=== PATIENT | female | born 1995 | race Caucasian/White ===

== ENCOUNTER 2017-09-29 13:01 | Inpatient (IN) | payer OTHER ==
[2017-09-29 14:53] VITALS: BMI 20.5
--- NOTE | 2017-09-29 15:14 | HP ---
COWS - Scale Resting Pulse: 2= CT 101-120 Sweatin=Flushed/Facial Moisture Restless Observation: 3= Extraneous Movement Pupil Size: 2= Moderately Dilated Bone or Joint Aches: 2= Severe Diffuse Aches Runny Nose/ Eye Tearin= Runny Nose/Eyes GI Upset > 30mins: 3= Vomiting/Diarrhea Tremor Observation: 1= Tremor [place], Not Seen Yawning Observation: 2= >3x During Session Anxiety or Irritability: 2=Irritable/Anxious Goose Flesh Skin: 0=Smooth Skin COWS Score: 21 CIWA Score - CIWA Score Nausea/Vomitin Muscle Tremors: 3 Anxiety: 3 Agitation: 3 Paroxysmal Sweats: 2 Orientation: 0-Oriented Tacttile Disturbances: 1-Very Mild Itch/Numbness Auditory Disturbances: 1-Very Mild Visual Disturbances: 1-Very Mild Sensitivity Headache: 2-Mild CIWA-Ar Total Score: 19 Admission ROS BHS - HPI Chief Complaint: I NEED HELP TO STOP USING HEROIN,XANAX AND CRACK Allergies/Adverse Reactions: Allergies Allergy/AdvReac Type Severity Reaction Status Date / Time No Known Allergies Allergy Verified 09/29/17 14:58 History of Present Illness: THIS 22 YEARS OLD FEMALE WITH HEROIN,XANAX,CRACK,SEEKING DETOX,WITHDRAWAL SYMPTOM,LAST DETOX ARMS AND ACRES IN 08/21 DENIED MEDICAL PROBLEM SURGERY FOR FRACTURES OF MANDIBLE AND LEFT WRIST IN 2013 NICOTINE DEPENDENCE LONGEST PERIOD OF SOBRIETY 1 AND HALF YEAR PTSD,BORDERLINED PERSONALITY WEIGHT LOSS - Ebola screening Have you traveled outside of the country in the last 21 days: No Have you had contact with anyone from an Ebola affected area: No Have you been sick,other than usual withdrawal symptoms: No - Review of Systems Constitutional: Loss of Appetite, Night Sweats, Changes in sleep, Weakness, Unintentional Wgt. Loss EENT: reports: Tearing, Nose Congestion, Other (SURGERY FOR FX OF MANDIBLES) Respiratory: reports: No Symptoms reported Cardiac: reports: Palpitations GI: reports: Diarrhea, Nausea, Vomiting, Abdominal cramping : reports: No Symptoms Reported Musculoskeletal: reports: Back Pain, Joint Pain, Muscle Pain, Neck Pain Integumentary: reports: Dryness Neuro: reports: Headache, Tremors Endocrine: reports: No Symptoms Reported Hematology: reports: No Symptoms Reported Psychiatric: reports: No Sypmtoms Reported (PTSD), Judgement Intact, Mood/ Affect Appropiate, Anxious, Depressed Patient History - Patient Medical History Hx Anemia: No Hx Asthma: No Hx Chronic Obstructive Pulmonary Disease (COPD): No Hx Cancer: No Hx Cardiac Disorders: No Hx Congestive Heart Failure: No Hx Hypertension: No Hx Hypercholesterolemia: No Hx Pacemaker: No HX Cerebrovascular Accident: No Hx Seizures: No Hx Dementia: No Hx Diabetes: No Hx Gastrointestinal Disorders: No Hx Liver Disease: No Hx Genitourinary Disorders: No Hx Sexually Transmitted Disorders: No Hx Renal Disease (ESRD): No Hx Thyroid Disease: No Hx Human Immunodeficiency Virus (HIV): No (LAST 07/31 NEGATIVE) Hx Hepatitis C: No Hx Depression: Yes (ANXIETY,PTSD) Hx Suicide Attempt: Yes (JUMP FROM THE [place]) Hx Bipolar Disorder: No Hx Schizophrenia: No Other Medical History: ANXIETY,DEPRESSION - Patient Surgical History Past Surgical History: Yes Other Surgical History: SURGERY FOR FX OF MANDIBLES AND LEFT WRIST IN 2013 - PPD History Previous Implant?: Yes Documented Results: Negative w/o proof Implanted On Prior R Admission?: No PPD to be Administered?: Yes - Reproductive History Patient is a Female of Child Bearing Age (11 -55 yrs old): Yes Patient : No - Smoking Cessation Smoking history: Current every day smoker Have you smoked in the past 12 months: Yes Aproximately how many cigarettes per day: 10 Hx Chewing Tobacco Use: No Initiated information on smoking cessation: Yes 'Breaking Loose' booklet given: 09/29/17 - Substance & Tx. History Hx Alcohol Use: No Hx Substance Use: Yes Substance Use Type: Cocaine, Heroin, Tranquilizers Hx Substance Use Treatment: Yes ([facility] IN 08/31) - Substances Abused Heroin Route: Injection Frequency: Daily Amount used: 10 BAGS Age of first use: 18 Date of Last Use: 09/29/17 Crack Route: Smoking Frequency: Daily Amount used: $40-120 Age of first use: 21 Date of Last Use: 09/29/17 Alprazolam (Xanax) Route: Oral Frequency: Daily Amount used: 2MG-8MG Age of first use: 14 Date of Last Use: 09/28/17 Family Disease History - Family Disease History Family History: Denies Admission Physical Exam BHS - Vital Signs Vital Signs: Vital Signs - 24 hr 09/29/17 14:49 Temperature 98.4 F Pulse Rate 115 H Respiratory 18 Rate Blood Pressure 138/106 - Physical General Appearance: Yes: Moderate Distress, Tremorous, Irritable, Sweating, Anxious HEENTM: Yes: Normal ENT Inspection, IVORY, Pharynx Normal Respiratory: Yes: Lungs Clear, Normal Breath Sounds, No Respiratory Distress Neck: Yes: Within Normal Limits, Supple, Trachea in good position Breast: Yes: Breast Exam Deferred Cardiology: Yes: Tachycardia Abdominal: Yes: Within Normal Limits, Normal Bowel Sounds, Non Tender, Soft Genitourinary: Yes: Within Normal Limits Back: Yes: Muscle Spasm Extremities: Yes: Within Normal Limits, Normal Inspection, Normal Range of Motion, Tremors Neurological: Yes: manufacturing executive II-XII NML intact, Fully Oriented, Alert, Motor Strength 5/5 Integumentary: Yes: Dry, Track [place] Lymphatic: Yes: Within Normal Limits - Diagnostic (1) Opioid dependence with withdrawal Current Visit: Yes Status: Acute (2) Cocaine dependence Current Visit: Yes Status: Acute (3) Uncomplicated sedative, hypnotic or anxiolytic withdrawal Current Visit: Yes Status: Acute (4) Weight loss Current Visit: Yes Status: Acute (5) Nicotine dependence Current Visit: Yes Status: Acute (6) PTSD (post-traumatic stress disorder) Current Visit: Yes Status: Acute (7) Borderline personality disorder Current Visit: Yes Status: Acute Cleared for Admission [facility] - Detox or Rehab [facility] Level of Care: Medically Managed Detox Regimen/Protocol: Methadone [facility] Breath Alcohol Content Breath Alcohol Content: 0 Urine Pregancy Test - Result Urine Test Results: Negative- NO Line Present Urine Drug Screen - Results Drug Screen Negative: No Urine Drug Screen Results: CHRISTAL-Cocaine, OPI-Opiates
[2017-09-29] MEDS ORDERED: LOPERAMIDE HCL 2 MG CAPSULE PO PRN (15:27)
[2017-09-29] MEDS ORDERED: MAG HYDROX/AL HYDROX/SIMETH 30 ML UNIT-DOSE CUP PO PRN (15:27)
[2017-09-29] MEDS ORDERED: MAGNESIUM HYDROX 2400MG/30ML ORAL SUSPENSION 30 ML CUP PO PRN (15:27)
[2017-09-29] MEDS ORDERED: IBUPROFEN 400 MG TABLET (FP) PO PRN (15:27)
[2017-09-29] MEDS ORDERED: P-EPHED 60MG/TRIPROLIDI 2.5MG TABLET PO PRN (15:27)
[2017-09-29] MEDS ORDERED: ACETAMINOPHEN 325 MG TABLET (FP) PO PRN (15:27)
[2017-09-29] MEDS ORDERED: guaiFENesin/D-METHORPHAN HB 10 ML UNIT-DOSE CUPS PO PRN (15:27)
[2017-09-29] MEDS ORDERED: MAGNESIUM CITRATE 300 ML BOTTLE PO PRN (15:27)
[2017-09-29] MEDS ORDERED: MENTHOL/PHENOL 1 EACH UD MM PRN (15:27)
[2017-09-29] MEDS ORDERED: METHADONE HCL 10 MG TABLET (FOR DETOX USE ONLY) PO ONE ×2 (16:00→23:00)
[2017-09-29 17:50] LABS: URINE APPEARANCE CLOUDY; URINE BILIRUBIN NEGATIVE (NEGATIVE); URINE BLOOD NEGATIVE (NEGATIVE); URINE COLOR YELLOW; URINE GLUCOSE (UA) NEGATIVE (NEGATIVE); URINE KETONE NEGATIVE (NEGATIVE); URINE LEUK ESTERASE TRACE (NEGATIVE); URINE NITRITE POSITIVE (NEGATIVE); URINE PROTEIN NEGATIVE (NEGATIVE); URINE UROBILINOGEN NEGATIVE mg/dL (0.2-1.0)
[2017-09-29 18:22] LABS: EPI CELLS FEW /HPF (FEW); URINE BACTERIA MANY /hpf (NONE SEEN); URINE MUCUS RARE
[2017-09-29] MEDS ORDERED: METHADONE HCL 10 MG TABLET (FOR DETOX USE ONLY) ONE (18:32)
[2017-09-29] MEDS: diazePAM 5 MG TABLET PO PRN (18:52)
[2017-09-29] MEDS: CYCLOBENZAPRINE HCL 10 MG TABLET (FP) PO PRN ×2 (18:53→22:12)
[2017-09-29] MEDS: NICOTINE 21 MG/24 HOURS TOPICAL PATCH TD SCH (18:57)
[2017-09-29] MEDS: THIAMINE HCL 100 MG TABLET (FP) PO SCH (22:12)
[2017-09-29] MEDS: cloNIDine HCL 0.1 MG TABLET PO SCH (22:12)
[2017-09-30] MEDS: diazePAM 5 MG TABLET PO PRN ×4 (05:38→18:29)
--- NOTE | 2017-09-30 08:59 | PN ---
[facility] CIWA - CIWA Score Nausea/Vomitin Muscle Tremors: 3 Anxiety: 3 Agitation: 3 Paroxysmal Sweats: 1-Minimal Palms Moist Orientation: 0-Oriented Tacttile Disturbances: 1-Very Mild Itch/Numbness Auditory Disturbances: 1-Very Mild Visual Disturbances: 0-None Headache: 2-Mild CIWA-Ar Total Score: 17 BHS COWS - Scale Resting Pulse: 1= MD 81-100 Sweatin= Chills/Flushing Restless Observation: 3= Extraneous Movement Pupil Size: 1= Pupils >than Normal Bone or Joint Aches: 2= Severe Diffuse Aches Runny Nose/ Eye Tearin= Runny Nose/Eyes GI Upset > 30mins: 2= Nausea/Diarrhea Tremor Observation of Outstretched Hands: 2= Slight Tremor Visible Yawning Observation: 1= 1-2x During Session Anxiety or Irritability: 2=Irritable/Anxious Goose Flesh Skin: 0=Smooth Skin COWS Score: 17 [facility] Progress Note (SOAP) Subjective: ALERT,IRRITABLE,ANXIOUS,INTERRUPTED SLEEP,TREMOR,PAIN IN THE BODY AND BACK Objective: 09/30/17 08:57 Vital Signs Temperature 99.5 F 09/30/17 06:00 Pulse Rate 97 H 09/30/17 06:00 Respiratory Rate 18 09/30/17 06:30 Blood Pressure 104/63 09/30/17 06:00 O2 Sat by Pulse Oximetry (%) 09/30/17 08:57 EKG NSR,NORMAL ECG 09/30/17 08:58 Laboratory Last Values Urine Color Yellow 09/29/17 15:30 Urine Appearance Cloudy 09/29/17 15:30 Urine pH 6.0 (5.0-8.0) 09/29/17 15:30 Ur Specific [place] 1.014 (1.001-1.035) 09/29/17 15:30 Urine Protein Negative (NEGATIVE) 09/29/17 15:30 Urine Glucose (UA) Negative (NEGATIVE) 09/29/17 15:30 Urine Ketones Negative (NEGATIVE) 09/29/17 15:30 Urine Blood Negative (NEGATIVE) 09/29/17 15:30 Urine Nitrite Positive (NEGATIVE) 09/29/17 15:30 Urine Bilirubin Negative (NEGATIVE) 09/29/17 15:30 Urine Urobilinogen Negative mg/dL (0.2-1.0) 09/29/17 15:30 Ur Leukocyte Esterase Trace (NEGATIVE) 09/29/17 15:30 Urine WBC (Auto) 5 /hpf (3-5) 09/29/17 15:30 Urine RBC (Auto) 3 /hpf (0-3) 09/29/17 15:30 Ur Epithelial Cells Few /HPF (FEW) 09/29/17 15:30 Urine Bacteria Many /hpf (NONE SEEN) 09/29/17 15:30 Urine Mucus Rare 09/29/17 15:30 LABS PENDING Assessment: 09/30/17 08:58 WITHDRAWAL SYMPTOM Plan: CONTINUE DETOX
[2017-09-30] MEDS ORDERED: METHADONE HCL 10 MG TABLET (FOR DETOX USE ONLY) PO ONE (10:00)
[2017-09-30 10:12] LABS: HEMATOCRIT 38.5 % (32.4-45.2); HEMOGLOBIN 13.1 GM/dL (10.7-15.3); MCH 30.7 pg (25.7-33.7); MEAN CELL VOLUME 90.2 fl (80-96); MEAN PLT VOLUME 8.3 fl (7.5-11.1); PLATELET COUNT 335 K/MM3 (134-434); RBC 4.27 M/mm3 (3.60-5.2); RDW 13.2 % (11.6-15.6); WHITE BLOOD COUNT 5.8 K/mm3 (4.0-10.0)
[2017-09-30] MEDS: PRENATAL VITAMINS W/ FOLIC ACID TABLET (FP) PO SCH (10:23)
[2017-09-30] MEDS: cloNIDine HCL 0.1 MG TABLET PO SCH ×2 (10:23→22:19)
[2017-09-30] MEDS: NICOTINE 21 MG/24 HOURS TOPICAL PATCH TD SCH (10:24)
[2017-09-30 10:26] LABS: CHLORIDE 105 mmol/L (98-107); POTASSIUM 4.6 mmol/L (3.5-5.1); SODIUM 140 mmol/L (136-145)
[2017-09-30 10:42] LABS: ALBUMIN 3.6 g/dl (3.4-5.0); ALK PHOS 97 U/L (45-117); ANION GAP 4 (8-16); BILIRUBIN,TOTAL 0.3 mg/dL (0.2-1.0); BLOOD UREA NITROGEN 16 mg/dL (7-18); CALCIUM 8.6 mg/dL (8.5-10.1); CO2 31 mmol/L (21-32); CREATININE 0.7 mg/dL (0.55-1.02); GLUCOSE,RANDOM 66 mg/dL (74-106); SGOT/AST 8 U/L (15-37); SGPT/ALT 16 U/L (12-78); TOT PROT 6.6 g/dl (6.4-8.2)
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
[2017-09-30] MEDS: ZIPRASIDONE 40 MG CAPSULE (FP) PO SCH (22:19)
[2017-09-30] MEDS: THIAMINE HCL 100 MG TABLET (FP) PO SCH (22:19)
[2017-09-30] MEDS: GABAPENTIN 400 MG CAPSULE (FP) PO SCH (22:19)
--- NOTE | 2017-10-01 00:55 | EKG ---
Test Reason : Blood Pressure : / mmHG Vent. Rate : 091 BPM Atrial Rate : 091 BPM P-R Int : 148 ms QRS Dur : 086 ms QT Int : 382 ms P-R-T Axes : 071 054 049 degrees QTc Int : 469 ms NORMAL SINUS RHYTHM NORMAL ECG NO PREVIOUS ECGS AVAILABLE Confirmed by HOLLY HOLLOWAY, DINESH ([id number]) on 10/01/2017 12:55:09 AM Referred By: Confirmed By:DINESH BARRERA MD
[2017-10-01] MEDS: GABAPENTIN 400 MG CAPSULE (FP) PO SCH ×3 (05:34→21:36)
[2017-10-01] MEDS: diazePAM 5 MG TABLET PO PRN ×4 (05:34→21:36)
--- NOTE | 2017-10-01 09:25 | PN ---
[facility] CIWA - CIWA Score Nausea/Vomitin Muscle Tremors: 3 Anxiety: 3 Agitation: 3 Paroxysmal Sweats: 1-Minimal Palms Moist Orientation: 0-Oriented Tacttile Disturbances: 1-Very Mild Itch/Numbness Auditory Disturbances: 1-Very Mild Visual Disturbances: 0-None Headache: 2-Mild CIWA-Ar Total Score: 17 BHS COWS - Scale Resting Pulse: 2= NM 101-120 Sweatin= Chills/Flushing Restless Observation: 3= Extraneous Movement Pupil Size: 1= Pupils >than Normal Bone or Joint Aches: 2= Severe Diffuse Aches Runny Nose/ Eye Tearin= Runny Nose/Eyes GI Upset > 30mins: 2= Nausea/Diarrhea Tremor Observation of Outstretched Hands: 2= Slight Tremor Visible Yawning Observation: 1= 1-2x During Session Anxiety or Irritability: 2=Irritable/Anxious Goose Flesh Skin: 0=Smooth Skin COWS Score: 18 [facility] Progress Note (SOAP) Subjective: ALERT,IRRITABLE,ANXIOUS,TREMOR,INTERRUPTED SLEEP,TREMOR,PAIN IN THE BODY AND BACK Objective: 10/01/17 09:23 Vital Signs Temperature 98.2 F 10/01/17 06:00 Pulse Rate 105 H 10/01/17 06:00 Respiratory Rate 16 10/01/17 06:00 Blood Pressure 100/69 10/01/17 06:00 O2 Sat by Pulse Oximetry (%) Laboratory Last Values WBC 5.8 K/mm3 (4.0-10.0) 09/30/17 07:00 RBC 4.27 M/mm3 (3.60-5.2) 09/30/17 07:00 Hgb 13.1 GM/dL (10.7-15.3) 09/30/17 07:00 Hct 38.5 % (32.4-45.2) 09/30/17 07:00 MCV 90.2 fl (80-96) 09/30/17 07:00 MCH 30.7 pg (25.7-33.7) 09/30/17 07:00 MCHC 34.0 g/dl (32.0-36.0) 09/30/17 07:00 RDW 13.2 % (11.6-15.6) 09/30/17 07:00 Plt Count 335 K/MM3 (134-434) 09/30/17 07:00 MPV 8.3 fl (7.5-11.1) 09/30/17 07:00 Sodium 140 mmol/L (136-145) 09/30/17 07:00 Potassium 4.6 mmol/L (3.5-5.1) 09/30/17 07:00 Chloride 105 mmol/L (98-107) 09/30/17 07:00 Carbon Dioxide 31 mmol/L (21-32) 09/30/17 07:00 Anion Gap 4 (8-16) L 09/30/17 07:00 BUN 16 mg/dL (7-18) 09/30/17 07:00 Creatinine 0.7 mg/dL (0.55-1.02) 09/30/17 07:00 Creat Clearance w eGFR > 60 (>60) 09/30/17 07:00 Random Glucose 66 mg/dL (74-106) L 09/30/17 07:00 Calcium 8.6 mg/dL (8.5-10.1) 09/30/17 07:00 Total Bilirubin 0.3 mg/dL (0.2-1.0) 09/30/17 07:00 AST 8 U/L (15-37) L 09/30/17 07:00 ALT 16 U/L (12-78) 09/30/17 07:00 Alkaline Phosphatase 97 U/L (45-117) 09/30/17 07:00 Total Protein 6.6 g/dl (6.4-8.2) 09/30/17 07:00 Albumin 3.6 g/dl (3.4-5.0) 09/30/17 07:00 Urine Color Yellow 09/29/17 15:30 Urine Appearance Cloudy 09/29/17 15:30 Urine pH 6.0 (5.0-8.0) 09/29/17 15:30 Ur Specific [place] 1.014 (1.001-1.035) 09/29/17 15:30 Urine Protein Negative (NEGATIVE) 09/29/17 15:30 Urine Glucose (UA) Negative (NEGATIVE) 09/29/17 15:30 Urine Ketones Negative (NEGATIVE) 09/29/17 15:30 Urine Blood Negative (NEGATIVE) 09/29/17 15:30 Urine Nitrite Positive (NEGATIVE) 09/29/17 15:30 Urine Bilirubin Negative (NEGATIVE) 09/29/17 15:30 Urine Urobilinogen Negative mg/dL (0.2-1.0) 09/29/17 15:30 Ur Leukocyte Esterase Trace (NEGATIVE) 09/29/17 15:30 Urine WBC (Auto) 5 /hpf (3-5) 09/29/17 15:30 Urine RBC (Auto) 3 /hpf (0-3) 09/29/17 15:30 Ur Epithelial Cells Few /HPF (FEW) 09/29/17 15:30 Urine Bacteria Many /hpf (NONE SEEN) 09/29/17 15:30 Urine Mucus Rare 09/29/17 15:30 RPR Titer Nonreactive (NONREACTIVE) 09/30/17 07:00 Hep C Ab Diagnostic <0.1 s/co ratio (0.0-0.9) 09/30/17 07:00 HIV 1&2 Antibody Screen Negative 09/30/17 07:00 HIV P24 Antigen Negative 09/30/17 07:00 Assessment: 10/01/17 09:24 WITHDRAWAL SYMPTOM Plan: CONTINUE DETOX
[2017-10-01] MEDS ORDERED: METHADONE HCL 5 MG TABLET (FOR DETOX USE ONLY) PO ONE (10:00)
[2017-10-01] MEDS: NICOTINE 21 MG/24 HOURS TOPICAL PATCH TD SCH (10:49)
[2017-10-01] MEDS: PRENATAL VITAMINS W/ FOLIC ACID TABLET (FP) PO SCH (10:49)
[2017-10-01] MEDS: cloNIDine HCL 0.1 MG TABLET PO SCH ×2 (10:49→21:36)
[2017-10-01] MEDS: CYCLOBENZAPRINE HCL 10 MG TABLET (FP) PO PRN (14:56)
[2017-10-01] MEDS: ZIPRASIDONE 40 MG CAPSULE (FP) PO SCH (21:36)
[2017-10-01] MEDS: THIAMINE HCL 100 MG TABLET (FP) PO SCH (21:36)
[2017-10-02] MEDS: diazePAM 5 MG TABLET PO PRN ×3 (05:25→14:26)
[2017-10-02] MEDS: GABAPENTIN 400 MG CAPSULE (FP) PO SCH ×3 (05:25→23:02)
[2017-10-02] MEDS ORDERED: METHADONE HCL 5 MG TABLET (FOR DETOX USE ONLY) PO ONE (10:00)
[2017-10-02] MEDS: NICOTINE 21 MG/24 HOURS TOPICAL PATCH TD SCH (10:22)
[2017-10-02] MEDS: PRENATAL VITAMINS W/ FOLIC ACID TABLET (FP) PO SCH (10:22)
[2017-10-02] MEDS: cloNIDine HCL 0.1 MG TABLET PO SCH ×2 (10:22→23:02)
--- NOTE | 2017-10-02 10:24 | PN ---
S Progress Note (SOAP) Subjective: ALERT,IRRITABLE,ANXIOUS,INTERRUPTED SLEEP,TREMOR,PAIN IN THE BODY AND BACK Objective: 10/02/17 10:22 Vital Signs Temperature 97.7 F 10/02/17 10:00 Pulse Rate 113 H 10/02/17 10:00 Respiratory Rate 18 10/02/17 10:00 Blood Pressure 107/66 10/02/17 10:00 O2 Sat by Pulse Oximetry (%) Laboratory Last Values WBC 5.8 K/mm3 (4.0-10.0) 09/30/17 07:00 RBC 4.27 M/mm3 (3.60-5.2) 09/30/17 07:00 Hgb 13.1 GM/dL (10.7-15.3) 09/30/17 07:00 Hct 38.5 % (32.4-45.2) 09/30/17 07:00 MCV 90.2 fl (80-96) 09/30/17 07:00 MCH 30.7 pg (25.7-33.7) 09/30/17 07:00 MCHC 34.0 g/dl (32.0-36.0) 09/30/17 07:00 RDW 13.2 % (11.6-15.6) 09/30/17 07:00 Plt Count 335 K/MM3 (134-434) 09/30/17 07:00 MPV 8.3 fl (7.5-11.1) 09/30/17 07:00 Sodium 140 mmol/L (136-145) 09/30/17 07:00 Potassium 4.6 mmol/L (3.5-5.1) 09/30/17 07:00 Chloride 105 mmol/L (98-107) 09/30/17 07:00 Carbon Dioxide 31 mmol/L (21-32) 09/30/17 07:00 Anion Gap 4 (8-16) L 09/30/17 07:00 BUN 16 mg/dL (7-18) 09/30/17 07:00 Creatinine 0.7 mg/dL (0.55-1.02) 09/30/17 07:00 Creat Clearance w eGFR > 60 (>60) 09/30/17 07:00 Random Glucose 66 mg/dL (74-106) L 09/30/17 07:00 Calcium 8.6 mg/dL (8.5-10.1) 09/30/17 07:00 Total Bilirubin 0.3 mg/dL (0.2-1.0) 09/30/17 07:00 AST 8 U/L (15-37) L 09/30/17 07:00 ALT 16 U/L (12-78) 09/30/17 07:00 Alkaline Phosphatase 97 U/L (45-117) 09/30/17 07:00 Total Protein 6.6 g/dl (6.4-8.2) 09/30/17 07:00 Albumin 3.6 g/dl (3.4-5.0) 09/30/17 07:00 Urine Color Yellow 09/29/17 15:30 Urine Appearance Cloudy 09/29/17 15:30 Urine pH 6.0 (5.0-8.0) 09/29/17 15:30 Ur Specific [place] 1.014 (1.001-1.035) 09/29/17 15:30 Urine Protein Negative (NEGATIVE) 09/29/17 15:30 Urine Glucose (UA) Negative (NEGATIVE) 09/29/17 15:30 Urine Ketones Negative (NEGATIVE) 09/29/17 15:30 Urine Blood Negative (NEGATIVE) 09/29/17 15:30 Urine Nitrite Positive (NEGATIVE) 09/29/17 15:30 Urine Bilirubin Negative (NEGATIVE) 09/29/17 15:30 Urine Urobilinogen Negative mg/dL (0.2-1.0) 09/29/17 15:30 Ur Leukocyte Esterase Trace (NEGATIVE) 09/29/17 15:30 Urine WBC (Auto) 5 /hpf (3-5) 09/29/17 15:30 Urine RBC (Auto) 3 /hpf (0-3) 09/29/17 15:30 Ur Epithelial Cells Few /HPF (FEW) 09/29/17 15:30 Urine Bacteria Many /hpf (NONE SEEN) 09/29/17 15:30 Urine Mucus Rare 09/29/17 15:30 RPR Titer Nonreactive (NONREACTIVE) 09/30/17 07:00 Hep C Ab Diagnostic <0.1 s/co ratio (0.0-0.9) 09/30/17 07:00 HIV 1&2 Antibody Screen Negative 09/30/17 07:00 HIV P24 Antigen Negative 09/30/17 07:00 Assessment: 10/02/17 10:23 WITHDRAWAL SYMPTOM Plan: CONTINUE DETOX
[2017-10-02] MEDS: CYCLOBENZAPRINE HCL 10 MG TABLET (FP) PO PRN (14:26)
[2017-10-02] MEDS: hydrOXYzine PAMOATE 25 MG CAPSULE (FP) PO PRN ×2 (17:58→23:03)
[2017-10-02] MEDS: THIAMINE HCL 100 MG TABLET (FP) PO SCH (23:02)
[2017-10-02] MEDS: ZIPRASIDONE 40 MG CAPSULE (FP) PO SCH (23:02)
[2017-10-03] MEDS: GABAPENTIN 400 MG CAPSULE (FP) PO SCH ×3 (05:48→22:08)
[2017-10-03] MEDS: CYCLOBENZAPRINE HCL 10 MG TABLET (FP) PO PRN ×3 (05:49→22:08)
[2017-10-03] MEDS: hydrOXYzine PAMOATE 25 MG CAPSULE (FP) PO PRN ×3 (05:49→20:46)
[2017-10-03] MEDS ORDERED: METHADONE HCL 10 MG TABLET (FOR DETOX USE ONLY) PO ONE (10:00)
--- NOTE | 2017-10-03 10:28 | PN ---
S Progress Note (SOAP) Subjective: ALERT,IRRITABLE,ANXIOUS,INTERRUPTED SLEEP Objective: 10/03/17 10:28 Vital Signs Temperature 98.1 F 10/03/17 09:25 Pulse Rate 134 H 10/03/17 09:25 Respiratory Rate 20 10/03/17 09:25 Blood Pressure 120/68 10/03/17 09:25 O2 Sat by Pulse Oximetry (%) Assessment: 10/03/17 10:28 WITHDRAWAL SYMPTOM Plan: CONTINUE DETOX,DISCHARGE IN AM
[2017-10-03] MEDS: PRENATAL VITAMINS W/ FOLIC ACID TABLET (FP) PO SCH (10:29)
[2017-10-03] MEDS: NICOTINE 21 MG/24 HOURS TOPICAL PATCH TD SCH (10:29)
[2017-10-03] MEDS: cloNIDine HCL 0.1 MG TABLET PO SCH ×2 (10:29→22:08)
--- NOTE | 2017-10-03 12:13 | PN ---
Psychiatric Progress Note Vital Signs: Vital Signs Period Temp Pulse Resp BP Sys/Perdomo Pulse Ox Last 24 Hr 98.1 F-98.8 F 97-134 16-20 96-137/55-75 Date of Session: 10/03/17 Chief Complaint:: " I need a medication for my anxiety." ROS: Unremarkable. Current Medications: Active Medications Generic Name Dose Route Start Last Admin Trade Name Freq PRN Reason Stop Dose Admin Acetaminophen 650 mg 09/29/17 15:27 Tylenol - PO Q4H PRN FEVER Al Hydroxide/Mg Hydroxide 30 ml 09/29/17 15:27 Mylanta Oral Suspension - PO Q6H PRN DYSPEPSIA Clonidine 0.1 mg 09/29/17 22:00 10/03/17 10:29 Catapres - PO 0.1 mg BID SONU Administration Cyclobenzaprine HCl 10 mg 09/29/17 15:32 10/03/17 05:49 Flexeril - PO 10 mg TID PRN Administration MUSCLE SPASMS Eucalyptus/Menthol/Phenol/Sorbitol 1 each 09/29/17 15:27 Cepastat Lozenge - MM Q4H PRN SORE THROAT Gabapentin 400 mg 09/30/17 22:00 10/03/17 05:48 Neurontin - PO 400 mg TID SONU Administration Guaifenesin 10 ml 09/29/17 15:27 Robitussin Dm - PO Q6H PRN COUGH Hydroxyzine Pamoate 25 mg 09/29/17 15:27 10/03/17 05:49 Vistaril - PO 25 mg Q4H PRN Administration AGITATION Ibuprofen 400 mg 09/29/17 15:27 Motrin - PO Q6H PRN PAIN LEVEL 4-6 Loperamide HCl 4 mg 09/29/17 15:27 Imodium - PO Q6H PRN DIARRHEA Magnesium Citrate 300 ml 09/29/17 15:27 Citroma - PO Q48H PRN CONSTIPATION Magnesium Hydroxide 30 ml 09/29/17 15:27 Milk Of Magnesia - PO DAILY PRN CONSTIPATION Methadone HCl 5 mg 10/04/17 06:00 Dolophine - PO 10/04/17 06:01 ONCE@0600 ONE Nicotine 21 mg 09/29/17 16:00 10/03/17 10:29 Nicoderm Patch - TD 21 mg DAILY SONU Administration Multivit/Folic Acid/Iron 1 tab 09/30/17 10:00 10/03/17 10:29 Vitamins (Sjr) - PO 1 tab DAILY SONU Administration Pseudoephedrine/Triprolidine 1 combo 09/29/17 15:27 Actifed - PO TID PRN NASAL CONGESTION Thiamine HCl 100 mg 09/29/17 22:00 10/02/17 23:02 Vitamin B1 - PO 100 mg HS SONU Administration Ziprasidone 40 mg 09/30/17 22:00 10/02/17 23:02 Geodon - PO 40 mg HS SONU Administration Medication(s) Change(s): Yes. Will add buspar 10mg BID Current Side Effect: No Lab tests ordered: No Lab tests reviewed: Yes Provider note:: Plastic Maker met with patient concerning psychiatric reconsultation. Pt. c/o anxiety. States the vistaril 50mg is not effective. Pt. with a h/o accepting buspar 5mg TID in November of 2016. Pt. agreeable with restarting buspar for anxiety. Pt. encouraged to utilize her coping skills when her anxiety increases and to follow up with her psychiatrist after discharge from rehab. Benefits and side effects discussed. Verbal consent given. Will order Buspar 10mg BID. Total face to face time:: 25 Mental Status Exam - Mental Status Exam Alert and Oriented to: Time, Place, Person Cognitive Function: Good Patient Appearance: Well Groomed Mood: Anxious Affect: Appropriate Patient Behavior: Appropriate, Cooperative Speech Pattern: Clear, Appropriate Voice Loudness: Normal Thought Disorder: Not Present Hallucinations: Denies Suicidal Ideation: Denies Homicidal Ideation: Denies Insight/Judgement: Poor Sleep: Fair Appetite: Fair Muscle strength/Tone: Normal Gait/Station: Normal Psychiatric Treatment Plan - Problem List (1) Borderline personality disorder Current Visit: Yes Comment: self reports. (2) Cocaine dependence Current Visit: Yes (3) Opioid dependence with withdrawal Current Visit: Yes (4) PTSD (post-traumatic stress disorder) Current Visit: Yes Comment: self reports. (5) Substance induced mood disorder Current Visit: Yes
[2017-10-03] MEDS: busPIRone HCL 10 MG TABLET (FP) PO SCH ×2 (12:32→22:08)
[2017-10-03] MEDS: THIAMINE HCL 100 MG TABLET (FP) PO SCH (22:08)
[2017-10-03] MEDS: ZIPRASIDONE 40 MG CAPSULE (FP) PO SCH (22:08)
[2017-10-04] MEDS: GABAPENTIN 400 MG CAPSULE (FP) PO SCH (05:10)
[2017-10-04] MEDS: hydrOXYzine PAMOATE 25 MG CAPSULE (FP) PO PRN (05:11)
[2017-10-04] MEDS: CYCLOBENZAPRINE HCL 10 MG TABLET (FP) PO PRN (05:11)
[2017-10-04] MEDS ORDERED: METHADONE HCL 5 MG TABLET (FOR DETOX USE ONLY) PO ONE (06:00)
[2017-10-04 06:19] VITALS: TEMP 97.9
[2017-10-04 09:32] VITALS: BP 108/71; PULSE 108
--- NOTE | 2017-10-04 12:21 | PN ---
S Progress Note (SOAP) Subjective: No new complaints verbalized feeling okay Objective: 10/04/17 12:20 A & O x 3 No acute distress ambulatory steadily Vital Signs Temperature 97.9 F 10/04/17 09:31 Pulse Rate 108 H 10/04/17 09:31 Respiratory Rate 16 10/04/17 09:31 Blood Pressure 108/71 10/04/17 09:31 O2 Sat by Pulse Oximetry (%) Assessment: 10/04/17 12:21 detox successfully completed Plan: for discharge
--- NOTE | 2017-10-04 12:28 | DS ---
[facility] Detox Discharge Summary Admission Date: 09/29/17 Discharge Date: 10/04/17 - History Additional Comments: Pt for d/c plans for [facility] rehab program being picked up by mother - Physical Exam Results Vital Signs: Vital Signs Temperature 97.9 F 10/04/17 09:31 Pulse Rate 108 H 10/04/17 09:31 Respiratory Rate 16 10/04/17 09:31 Blood Pressure 108/71 10/04/17 09:31 O2 Sat by Pulse Oximetry (%) Pertinent Admission Physical Exam Findings: withdrawal sx - Treatment Hospital Course: Detox Protocol Followed, Detoxed Safely, Responded well, Discharged Condition Good Patient has Accepted a Rehab Referral to: [facility] - Medication Discharge Medications: Ambulatory Orders Buspirone HCl [Buspar -] 10 mg PO BID #60 tablet 10/03/17 Gabapentin [Neurontin -] 400 mg PO TID #30 capsule 10/03/17 Ziprasidone [Geodon -] 40 mg PO HS #30 capsule 10/03/17 - Diagnosis (1) Opioid dependence with withdrawal Status: Acute (2) Uncomplicated sedative, hypnotic or anxiolytic withdrawal Status: Acute (3) Nicotine dependence Status: Acute (4) Cocaine dependence Status: Acute (5) Substance induced mood disorder Status: Acute (6) Weight loss Status: Acute (7) Borderline personality disorder Status: Chronic (8) PTSD (post-traumatic stress disorder) Status: Chronic - AMA Did Patient Leave Against Medical Advice: No
== END 2017-10-04 08:55 | disposition home or self-care (01) | DRG 773 ==
LOC: YASAS 13:01 → Y6N 15:16
PROVIDERS: ADMIT Internal Medicine; ATTEND Internal Medicine
PROC: HZ2ZZZZ Detoxification Services for Substance Abuse Treatment (ICD-10-PCS; principal; 2017-09-29)
DX: F11.23 Opioid dependence with withdrawal (principal); F13.230 Sedative, hypnotic or anxiolytic dependence with withdrawal, uncomplicated; F14.20 Cocaine dependence, uncomplicated; F19.24 Other psychoactive substance dependence with psychoactive substance-induced mood disorder; F41.8 Other specified anxiety disorders; F43.10 Post-traumatic stress disorder, unspecified; F69 Unspecified disorder of adult personality and behavior; R63.4 Abnormal weight loss; Z68.20 Body mass index [BMI] 20.0-20.9, adult; Z91.5 Personal history of self-harm
CPT/HCPCS: 36415; 80053; 81003; 81015; 85027; 86593; 87389; 93005; 93010; J0735

== ENCOUNTER 2022-07-26 19:08 | Inpatient (IN) | payer OTHER ==
[2022-07-26 20:03] VITALS: BMI 30.5
[2022-07-27] MEDS ORDERED: MAG HYDROX/AL HYDROX/SIMETH 30 ML UNIT-DOSE CUP PO PRN (03:10)
[2022-07-27] MEDS ORDERED: DICYCLOMINE HCL 10 MG CAPSULE PO PRN (03:10)
[2022-07-27] MEDS ORDERED: NALOXONE HCL (KLOXXADO) 8 MG SPRAY NS PRN (03:10)
[2022-07-27] MEDS ORDERED: ACETAMINOPHEN 325 MG TABLET (FP) PO PRN ×2 (03:10)
[2022-07-27] MEDS ORDERED: IBUPROFEN 400 MG TABLET (FP) PO PRN (03:10)
[2022-07-27] MEDS ORDERED: MAGNESIUM HYDROX 2400MG/30ML ORAL SUSPENSION 30 ML CUP PO PRN (03:10)
[2022-07-27] MEDS ORDERED: POLYETHYLENE GLYCOL (HEALTHYLAX) 3350 17 GM PACKET PO PRN (03:10)
[2022-07-27] MEDS ORDERED: IBUPROFEN 600 MG TABLET (FP) PO PRN (03:10)
[2022-07-27] MEDS ORDERED: BISMUTH SUBSALICYLATE 524 MG/30 ML PO PRN (03:10)
[2022-07-27] MEDS ORDERED: BENZOCAINE/MENTHOL (CHLORASEPTIC ) LOZENGE MM PRN (03:10)
[2022-07-27] MEDS ORDERED: LOPERAMIDE HCL 2 MG CAPSULE PO PRN (03:10)
[2022-07-27] MEDS ORDERED: methaDONE HCL 10 MG TABLET (FOR DETOX USE ONLY) PO ONE (03:13)
[2022-07-27] MEDS: diazePAM 5 MG TABLET PO PRN ×2 (03:35→13:39)
[2022-07-27] MEDS: diazePAM 5 MG TABLET PO SCH ×4 (06:14→22:06)
[2022-07-27] MEDS: cloNIDine HCL 0.1 MG TABLET PO PRN ×3 (06:15→22:09)
[2022-07-27] MEDS: NICOTINE 14 MG/24 HOURS TOPICAL PATCH TD SCH (10:24)
[2022-07-27] MEDS: METHOCARBAMOL 500 MG TABLET PO PRN ×2 (10:24→22:09)
[2022-07-27] MEDS: PRENATAL VITAMINS W/ FOLIC ACID TABLET (FP) PO SCH (10:24)
[2022-07-27] MEDS: THIAMINE HCL 100 MG TABLET (FP) PO SCH (22:06)
[2022-07-27] MEDS: MELATONIN 5 MG TABLETS PO SCH (22:06)
[2022-07-28] MEDS: diazePAM 5 MG TABLET PO SCH ×3 (05:40→23:20)
[2022-07-28] MEDS: METHOCARBAMOL 500 MG TABLET PO PRN ×3 (05:40→20:18)
[2022-07-28] MEDS: PRENATAL VITAMINS W/ FOLIC ACID TABLET (FP) PO SCH (09:33)
[2022-07-28] MEDS: NICOTINE 14 MG/24 HOURS TOPICAL PATCH TD SCH (09:33)
[2022-07-28] MEDS: cloNIDine HCL 0.1 MG TABLET PO PRN ×3 (09:33→23:55)
[2022-07-28 11:17] LABS: HEMATOCRIT 40.9 % (32.4-45.2); HEMOGLOBIN 13.6 GM/dL (10.7-15.3); MCH 27.2 pg (25.7-33.7); MCHC 33.2 g/dl (32.0-36.0); MEAN CELL VOLUME 82.2 fl (80-96); MEAN PLT VOLUME 7.4 fl (7.5-11.1); PLATELET COUNT 407 10^3/uL (134-434); RBC 4.98 M/mm3 (3.60-5.2); RDW 15.6 % (11.6-15.6); WHITE BLOOD COUNT 8.1 K/mm3 (4.0-10.0)
[2022-07-28 11:23] LABS: CALCIUM 9.6 mg/dL (8.5-10.1)
[2022-07-28 11:24] LABS: ALBUMIN 3.6 g/dl (3.4-5.0)
[2022-07-28 11:27] LABS: CREATININE 0.7 mg/dL (0.55-1.3)
[2022-07-28 11:29] LABS: BILIRUBIN,TOTAL 0.4 mg/dL (0.2-1); TOT PROT 8.2 g/dl (6.4-8.2)
[2022-07-28] MEDS: diazePAM 5 MG TABLET PO PRN ×3 (12:23→20:18)
[2022-07-28 13:11] LABS: HIV INTERPRETATION NEGATIVE (NEGATIVE)
[2022-07-28] MEDS: THIAMINE HCL 100 MG TABLET (FP) PO SCH (22:09)
[2022-07-28] MEDS: MELATONIN 5 MG TABLETS PO SCH (22:09)
[2022-07-29] MEDS: METHOCARBAMOL 500 MG TABLET PO PRN ×3 (03:31→17:12)
[2022-07-29] MEDS: diazePAM 5 MG TABLET PO SCH ×2 (05:17→17:12)
[2022-07-29] MEDS: PRENATAL VITAMINS W/ FOLIC ACID TABLET (FP) PO SCH (09:33)
[2022-07-29] MEDS: diazePAM 5 MG TABLET PO PRN ×3 (09:34→22:11)
[2022-07-29] MEDS: NICOTINE 14 MG/24 HOURS TOPICAL PATCH TD SCH (09:35)
[2022-07-29] MEDS: ONDANSETRON *ODT* 4 MG TABLET SL PRN (09:36)
[2022-07-29] MEDS ORDERED: methaDONE HCL 10 MG TABLET (FOR DETOX USE ONLY) PO ONE (10:00)
[2022-07-29] MEDS: propRANOLol HCL 10 MG TABLET PO SCH ×4 (10:37→22:10)
[2022-07-29] MEDS: THIAMINE HCL 100 MG TABLET (FP) PO SCH (22:10)
[2022-07-29] MEDS: MELATONIN 5 MG TABLETS PO SCH (22:10)
[2022-07-30] MEDS ORDERED: diazePAM 5 MG TABLET PO ONE (06:00)
[2022-07-30] MEDS: propRANOLol HCL 10 MG TABLET PO SCH ×4 (09:16→22:22)
[2022-07-30] MEDS: PRENATAL VITAMINS W/ FOLIC ACID TABLET (FP) PO SCH (09:16)
[2022-07-30] MEDS: METHOCARBAMOL 500 MG TABLET PO PRN ×3 (09:16→22:23)
[2022-07-30] MEDS: NICOTINE 14 MG/24 HOURS TOPICAL PATCH TD SCH (09:19)
[2022-07-30] MEDS: ONDANSETRON *ODT* 4 MG TABLET SL PRN (13:09)
[2022-07-30] MEDS: NICOTINE 10 MG CARTRIDGE (INHALER) IH PRN (14:55)
[2022-07-30] MEDS: MELATONIN 5 MG TABLETS PO SCH (22:22)
[2022-07-30] MEDS: THIAMINE HCL 100 MG TABLET (FP) PO SCH (22:22)
[2022-07-31] MEDS: METHOCARBAMOL 500 MG TABLET PO PRN ×3 (07:45→22:06)
[2022-07-31] MEDS ORDERED: methaDONE HCL 10 MG TABLET (FOR DETOX USE ONLY) PO ONE (10:00)
[2022-07-31] MEDS: NICOTINE 14 MG/24 HOURS TOPICAL PATCH TD SCH (10:02)
[2022-07-31] MEDS: propRANOLol HCL 10 MG TABLET PO SCH ×4 (10:02→22:06)
[2022-07-31] MEDS: PRENATAL VITAMINS W/ FOLIC ACID TABLET (FP) PO SCH (10:02)
[2022-07-31] MEDS ORDERED: methaDONE HCL 10 MG TABLET PO ONE (14:15)
[2022-07-31] MEDS: NICOTINE 10 MG CARTRIDGE (INHALER) IH PRN (21:20)
[2022-07-31] MEDS: THIAMINE HCL 100 MG TABLET (FP) PO SCH (22:06)
[2022-07-31] MEDS: MELATONIN 5 MG TABLETS PO SCH (22:35)
[2022-08-01] MEDS ORDERED: methaDONE HCL 10 MG TABLET PO SCH (06:00)
[2022-08-01 06:37] VITALS: RESP 18; TEMP 98.6
[2022-08-01] MEDS: propRANOLol HCL 10 MG TABLET PO SCH (09:06)
[2022-08-01] MEDS: PRENATAL VITAMINS W/ FOLIC ACID TABLET (FP) PO SCH (09:06)
[2022-08-01] MEDS: NICOTINE 14 MG/24 HOURS TOPICAL PATCH TD SCH (09:31)
[2022-08-01 09:52] VITALS: BP 131/89; PULSE 113
== END 2022-08-01 10:46 | disposition home or self-care (01) | DRG 773 ==
LOC: YASAS 19:08 → Y6N 22:38
PROVIDERS: ADMIT Allergy & Immunology; ATTEND Surgery
PROC: HZ2ZZZZ Detoxification Services for Substance Abuse Treatment (ICD-10-PCS; principal; 2022-07-26)
DX: F10.230 Alcohol dependence with withdrawal, uncomplicated (principal); F13.230 Sedative, hypnotic or anxiolytic dependence with withdrawal, uncomplicated; F11.20 Opioid dependence, uncomplicated; F14.20 Cocaine dependence, uncomplicated; F17.210 Nicotine dependence, cigarettes, uncomplicated; F19.280 Other psychoactive substance dependence with psychoactive substance-induced anxiety disorder; F19.24 Other psychoactive substance dependence with psychoactive substance-induced mood disorder; F41.9 Anxiety disorder, unspecified; F41.0 Panic disorder [episodic paroxysmal anxiety]; F60.3 Borderline personality disorder; I10 Essential (primary) hypertension; Z62.810 Personal history of physical and sexual abuse in childhood; Z56.0 Unemployment, unspecified; Z59.00 Homelessness unspecified
CPT/HCPCS: 36415; 80053; 85027; 86780; 87389; 87811; 93005; 93010; C9803-CS; Q0162; U0003; U0005

== ENCOUNTER 2022-12-16 22:07 | Inpatient (IN) | payer OTHER ==
[2022-12-16 22:37] VITALS: BMI 26.1
[2022-12-16] MEDS ORDERED: NALOXONE HCL 0.4 MG/ML VIAL IM PRN (23:44)
[2022-12-16] MEDS ORDERED: POLYETHYLENE GLYCOL (HEALTHYLAX) 3350 17 GM PACKET PO PRN (23:44)
[2022-12-16] MEDS ORDERED: MAG HYDROX/AL HYDROX/SIMETH 30 ML UNIT-DOSE CUP PO PRN (23:44)
[2022-12-16] MEDS ORDERED: BENZOCAINE/MENTHOL (CHLORASEPTIC ) LOZENGE MM PRN (23:44)
[2022-12-16] MEDS ORDERED: IBUPROFEN 400 MG TABLET (FP) PO PRN (23:44)
[2022-12-16] MEDS ORDERED: MAGNESIUM HYDROX 2400MG/30ML ORAL SUSPENSION 30 ML CUP PO PRN (23:44)
[2022-12-16] MEDS ORDERED: ONDANSETRON *ODT* 4 MG TABLET SL PRN (23:44)
[2022-12-16] MEDS ORDERED: P-EPHED 60MG/TRIPROLIDI 2.5MG TABLET PO PRN (23:44)
[2022-12-16] MEDS ORDERED: NICOTINE 10 MG CARTRIDGE (INHALER) IH PRN (23:44)
[2022-12-16] MEDS ORDERED: BISMUTH SUBSALICYLATE 524 MG/30 ML PO PRN (23:44)
[2022-12-16] MEDS ORDERED: DICYCLOMINE HCL 10 MG CAPSULE PO PRN (23:44)
[2022-12-16] MEDS ORDERED: ACETAMINOPHEN 325 MG TABLET (FP) PO PRN (23:44)
[2022-12-16] MEDS ORDERED: guaiFENesin 600 MG TABLET.ER (FP) PO PRN (23:44)
[2022-12-16] MEDS ORDERED: MELATONIN 5 MG TABLETS PO PRN (23:44)
[2022-12-16] MEDS ORDERED: NALOXONE HCL (KLOXXADO) 8 MG SPRAY NS PRN (23:44)
[2022-12-16] MEDS ORDERED: BENZONATATE 200 MG CAPSULE PO PRN (23:44)
[2022-12-16] MEDS ORDERED: IBUPROFEN 600 MG TABLET (FP) PO PRN (23:44)
[2022-12-16] MEDS ORDERED: LOPERAMIDE HCL 2 MG CAPSULE PO PRN (23:44)
[2022-12-17] MEDS: diazePAM 5 MG TABLET PO SCH ×3 (10:23→22:16)
[2022-12-17] MEDS: PRENATAL VITAMINS W/ FOLIC ACID TABLET (FP) PO SCH (10:23)
[2022-12-17] MEDS: hydrOXYzine PAMOATE 25 MG CAPSULE (FP) PO PRN (10:23)
[2022-12-17] MEDS: METHOCARBAMOL 500 MG TABLET PO PRN (10:23)
[2022-12-17] MEDS ORDERED: methaDONE HCL 10 MG TABLET (FOR DETOX USE ONLY) PO ONE (10:30)
[2022-12-17] MEDS: GABAPENTIN 400 MG CAPSULE PO SCH ×2 (13:04→22:14)
[2022-12-17] MEDS: propRANOLol HCL 10 MG TABLET PO SCH ×3 (13:04→22:14)
[2022-12-17] MEDS: BACITRACIN ZINC 15 GM TUBE TOPICAL OINTMENT TP SCH ×3 (13:06→22:16)
[2022-12-17] MEDS: THIAMINE HCL 100 MG TABLET (FP) PO SCH (22:14)
[2022-12-17] MEDS: SUVOREXANT 10 MG TABLET PO PRN (22:16)
[2022-12-18] MEDS: GABAPENTIN 400 MG CAPSULE PO SCH ×3 (05:41→22:08)
[2022-12-18] MEDS: diazePAM 5 MG TABLET PO SCH ×4 (05:41→22:10)
[2022-12-18] MEDS: propRANOLol HCL 10 MG TABLET PO SCH ×4 (10:11→22:08)
[2022-12-18] MEDS: PRENATAL VITAMINS W/ FOLIC ACID TABLET (FP) PO SCH (10:11)
[2022-12-18] MEDS: METHOCARBAMOL 500 MG TABLET PO PRN ×2 (10:11→16:58)
[2022-12-18] MEDS: BACITRACIN ZINC 15 GM TUBE TOPICAL OINTMENT TP SCH ×2 (10:14→22:09)
[2022-12-18] MEDS: hydrOXYzine PAMOATE 25 MG CAPSULE (FP) PO PRN (16:58)
[2022-12-18] MEDS: THIAMINE HCL 100 MG TABLET (FP) PO SCH (22:08)
[2022-12-18] MEDS: SUVOREXANT 10 MG TABLET PO PRN (22:08)
[2022-12-19] MEDS: diazePAM 5 MG TABLET PO SCH ×3 (06:19→22:45)
[2022-12-19] MEDS: GABAPENTIN 400 MG CAPSULE PO SCH ×3 (06:19→22:45)
[2022-12-19] MEDS ORDERED: methaDONE HCL 10 MG TABLET (FOR DETOX USE ONLY) PO ONE (10:00)
[2022-12-19] MEDS: propRANOLol HCL 10 MG TABLET PO SCH ×4 (10:30→22:45)
[2022-12-19] MEDS: BACITRACIN ZINC 15 GM TUBE TOPICAL OINTMENT TP SCH ×2 (10:30→22:45)
[2022-12-19] MEDS: METHOCARBAMOL 500 MG TABLET PO PRN (10:30)
[2022-12-19] MEDS: diazePAM 5 MG TABLET PO PRN ×2 (10:30→17:13)
[2022-12-19] MEDS: PRENATAL VITAMINS W/ FOLIC ACID TABLET (FP) PO SCH (10:30)
[2022-12-19] MEDS: SUVOREXANT 10 MG TABLET PO PRN (22:45)
[2022-12-19] MEDS: THIAMINE HCL 100 MG TABLET (FP) PO SCH (22:45)
[2022-12-20] MEDS: diazePAM 5 MG TABLET PO SCH ×2 (06:07→17:40)
[2022-12-20] MEDS: GABAPENTIN 400 MG CAPSULE PO SCH ×3 (06:08→22:10)
[2022-12-20] MEDS: METHOCARBAMOL 500 MG TABLET PO PRN ×2 (10:19→22:09)
[2022-12-20] MEDS: propRANOLol HCL 10 MG TABLET PO SCH ×4 (10:19→22:09)
[2022-12-20] MEDS: PRENATAL VITAMINS W/ FOLIC ACID TABLET (FP) PO SCH (10:19)
[2022-12-20] MEDS: hydrOXYzine PAMOATE 25 MG CAPSULE (FP) PO PRN ×2 (10:23→22:09)
[2022-12-20] MEDS: BACITRACIN ZINC 15 GM TUBE TOPICAL OINTMENT TP SCH ×2 (10:23→22:11)
[2022-12-20] MEDS: THIAMINE HCL 100 MG TABLET (FP) PO SCH (22:09)
[2022-12-21] MEDS: GABAPENTIN 400 MG CAPSULE PO SCH ×3 (05:57→23:35)
[2022-12-21] MEDS ORDERED: diazePAM 5 MG TABLET PO ONE (06:00)
[2022-12-21] MEDS ORDERED: methaDONE HCL 10 MG TABLET (FOR DETOX USE ONLY) PO ONE (10:00)
[2022-12-21] MEDS: PRENATAL VITAMINS W/ FOLIC ACID TABLET (FP) PO SCH (10:33)
[2022-12-21] MEDS: BACITRACIN ZINC 15 GM TUBE TOPICAL OINTMENT TP SCH ×2 (10:34→23:35)
[2022-12-21] MEDS: propRANOLol HCL 10 MG TABLET PO SCH ×4 (10:34→23:35)
[2022-12-21] MEDS: METHOCARBAMOL 500 MG TABLET PO PRN (17:37)
[2022-12-21] MEDS: THIAMINE HCL 100 MG TABLET (FP) PO SCH (23:35)
[2022-12-22] MEDS: GABAPENTIN 400 MG CAPSULE PO SCH (05:23)
[2022-12-22] MEDS: propRANOLol HCL 10 MG TABLET PO SCH (09:36)
[2022-12-22] MEDS: PRENATAL VITAMINS W/ FOLIC ACID TABLET (FP) PO SCH (09:36)
[2022-12-22] MEDS: BACITRACIN ZINC 15 GM TUBE TOPICAL OINTMENT TP SCH (09:38)
[2022-12-22 10:01] VITALS: BP 131/82; PULSE 107; RESP 17; TEMP 98
== END 2022-12-22 10:00 | disposition home or self-care (01) | DRG 773 ==
LOC: YASAS 22:07 → Y6N 12-17 00:06
PROVIDERS: ADMIT Allergy & Immunology; ATTEND Surgery
PROC: HZ2ZZZZ Detoxification Services for Substance Abuse Treatment (ICD-10-PCS; principal; 2022-12-17)
DX: F11.23 Opioid dependence with withdrawal (principal); F13.230 Sedative, hypnotic or anxiolytic dependence with withdrawal, uncomplicated; F17.290 Nicotine dependence, other tobacco product, uncomplicated; F19.280 Other psychoactive substance dependence with psychoactive substance-induced anxiety disorder; F19.282 Other psychoactive substance dependence with psychoactive substance-induced sleep disorder; F19.24 Other psychoactive substance dependence with psychoactive substance-induced mood disorder; F43.10 Post-traumatic stress disorder, unspecified; F60.3 Borderline personality disorder; I10 Essential (primary) hypertension; Z62.810 Personal history of physical and sexual abuse in childhood; Z91.410 Personal history of adult physical and sexual abuse; Z87.11 Personal history of peptic ulcer disease; Z59.00 Homelessness unspecified
CPT/HCPCS: 87077; 87086; 87635; Q0162

== ENCOUNTER 2025-03-01 14:25 | Inpatient (IN) | payer OTHER ==
[2025-03-01 15:01] VITALS: BMI 27.4
[2025-03-01] MEDS ORDERED: NICOTINE POLACRILEX 2 MG LOZENGE BC PRN (16:40)
[2025-03-01] MEDS ORDERED: BENZONATATE 200 MG CAPSULE PO PRN (16:40)
[2025-03-01] MEDS ORDERED: P-EPHED 60MG/TRIPROLIDI 2.5MG TABLET PO PRN (16:40)
[2025-03-01] MEDS ORDERED: BISMUTH SUBSALICYLATE 524 MG/30 ML PO PRN (16:40)
[2025-03-01] MEDS ORDERED: MAG HYDROX/AL HYDROX/SIMETH 30 ML UNIT-DOSE CUP PO PRN (16:40)
[2025-03-01] MEDS ORDERED: guaiFENesin 600 MG TABLET.ER (FP) PO PRN (16:40)
[2025-03-01] MEDS ORDERED: ACETAMINOPHEN 325 MG TABLET (FP) PO PRN (16:40)
[2025-03-01] MEDS ORDERED: NALOXONE (NARCAN) HCL 4 MG/0.1 ML SPRAY NS PRN (16:40)
[2025-03-01] MEDS ORDERED: BENZOCAINE/MENTHOL (CHLORASEPTIC ) LOZENGE MM PRN (16:40)
[2025-03-01] MEDS ORDERED: MAGNESIUM HYDROX 2400MG/30ML ORAL SUSPENSION 30 ML CUP PO PRN (16:40)
[2025-03-01] MEDS ORDERED: NICOTINE POLACRILEX 2 MG GUM BUC PRN (16:40)
[2025-03-01] MEDS ORDERED: IBUPROFEN 600 MG TABLET (FP) PO PRN (16:40)
[2025-03-01] MEDS ORDERED: POLYETHYLENE GLYCOL (HEALTHYLAX) 3350 17 GM PACKET PO PRN (16:40)
[2025-03-01] MEDS ORDERED: DICYCLOMINE HCL 10 MG CAPSULE PO PRN (16:40)
[2025-03-01] MEDS ORDERED: LOPERAMIDE HCL 2 MG CAPSULE PO PRN (16:40)
[2025-03-01] MEDS ORDERED: IBUPROFEN 400 MG TABLET (FP) PO PRN (16:40)
[2025-03-01] MEDS ORDERED: ONDANSETRON *ODT* 4 MG TABLET SL PRN (16:40)
[2025-03-01] MEDS: METHOCARBAMOL 500 MG TABLET PO PRN (22:14)
[2025-03-01] MEDS: THIAMINE 100 MG TABLET PO SCH (22:14)
[2025-03-01] MEDS: hydrOXYzine PAMOATE 25 MG CAPSULE (FP) PO PRN (22:14)
[2025-03-01] MEDS: levETIRAcetam 500 MG TABLET (FP) PO SCH (22:14)
[2025-03-01] MEDS: MELATONIN 5 MG TABLETS PO SCH (22:14)
[2025-03-02] MEDS: PRENATAL VITAMINS W/ FOLIC ACID TABLET (FP) PO SCH (10:13)
[2025-03-02 10:29] LABS: MCHC 32.9 g/dl (32.2-35.5); MEAN CELL VOLUME 91.3 fl (79.4-94.8); MEAN PLT VOLUME 9.8 fl (9.4-12.3); RDW 12.0 % (12.1-16.5)
[2025-03-02 12:07] LABS: ALK PHOS 48 U/L (40-150); CO2 27 mmol/L (21-32); GLUCOSE,RANDOM 92 mg/dL (74-106); SGOT/AST 15 U/L (5-34); SGPT/ALT 15 U/L (0-55); TOT PROT 6.3 g/dl (6.4-8.2)
[2025-03-02 12:08] LABS: CREATININE 0.67 mg/dL (0.55-1.3)
[2025-03-03 09:06] VITALS: BP 100/61; PULSE 59; RESP 12; TEMP 97.5
== END 2025-03-03 11:55 | disposition home or self-care (01) | DRG 775 ==
LOC: YASAS 14:25 → Y3N 19:12
PROVIDERS: ADMIT Neuromusculoskeletal Medicine & OMM; ATTEND Allergy & Immunology
PROC: HZ2ZZZZ Detoxification Services for Substance Abuse Treatment (ICD-10-PCS; principal; 2025-03-01)
DX: F10.20 Alcohol dependence, uncomplicated (principal); F13.20 Sedative, hypnotic or anxiolytic dependence, uncomplicated; F12.20 Cannabis dependence, uncomplicated; F17.290 Nicotine dependence, other tobacco product, uncomplicated; J45.909 Unspecified asthma, uncomplicated; Z87.19 Personal history of other diseases of the digestive system
CPT/HCPCS: 36415; 80053; 80307; 85027; 86780; 93005; 93010